=== PATIENT | male | born 1950 | race Caucasian/White ===

== ENCOUNTER 2016-05-25 08:26 | Observation (INO) | payer MEDICARE, OTHER ==
[2016-05-14 13:11] LABS: BASOPHILS 0.3 %; BASOPHILS ABSOLUTE 0.02 10/3/uL (0.0-0.16); EOSINOPHILS 4.6 %; EOSINOPHILS ABSOLUTE 0.35 10/3/uL (0.0-0.53); HEMATOCRIT 42.5 % (40.0-51.0); HEMOGLOBIN 14.1 g/dL (13.6-17.8); IMMATURE GRANULOCYTES 0.3 %; IMMATURE GRANULOCYTES ABSOLUTE 0.02 10/3/uL (0.0-0.11); LYMPHOCYTES 27.7 %; LYMPHOCYTES ABSOLUTE 2.13 10/3/uL (0.67-4.30); MEAN CORPUS HGB CONC 33.2 g/dL (32.0-36.0); MEAN CORPUSCULAR HEMOGLOB 31.7 pg (26.0-34.0); MEAN CORPUSCULAR VOLUME 95.5 fL (80-100); MEAN PLATELET VOLUME 11.2 fL (9.2-13.0); MONOCYTES 5.9 %; MONOCYTES ABSOLUTE 0.45 10/3/uL (0.21-1.20); NEUTROPHILS 61.2 %; NEUTROPHILS ABSOLUTE 4.72 10/3/uL (2.02-8.40); PLATELET COUNT 223 10/3/uL (150-400); RBC DISTRIBUTION WIDTH 13.5 % (12.0-16.0); RED CELL COUNT 4.45 10/6/uL (4.7-6.1); WHITE BLOOD CELLS 7.7 10/3/uL (4.5-10.5)
[2016-05-14 13:14] LABS: MANUAL DIFF NO %
[2016-05-14 13:19] LABS: PARTIAL THROMBO TIME 32.6 SEC (22.5-37.2); PROTIME (NOT ORD) 13.2 SEC (12.0-14.5)
[2016-05-14 13:25] LABS: BUN (BLOOD UREA NITROGEN) 18 MG/DL (6-23); CHLORIDE, SERUM 102 MMOL/L (96-112); CO2 (CARBON DIOXIDE) 31 MMOL/L (24-34); CREATININE 0.78 MG/DL (0.70-1.30); GFR AFRICAN AMERICAN 108 ML/MIN (>=60); GFR NON AFRICAN AMERICAN 93 ML/MIN (>=60); POTASSIUM, SERUM 4.8 MMOL/L (3.5-5.3); SODIUM, SERUM 142 MMOL/L (135-148)
[2016-05-14 13:27] LABS: GLUCOSE, SERUM 140 MG/DL (60-99)
[2016-05-14 13:59] LABS: ASCORBIC ACID (UR NOT ORDER) NEG (NEG); BILIRUBIN, URINE NEGATIVE (NEG); KETONE, URINE NEGATIVE (NEG); LEUKOCYTE ESTERASE(NOT OR NEG (NEG); WBC (NOT ORDERED) (RFLEX) 1 (0-5)
--- NOTE | ~2016-05-25 | OP ---
Record Of Operation [facility] [address] [place]. [address] NAME: IVAN TSAI : 46 STATUS : ADM Bret PAT#: [id number] AGE: 65 ADM/REG DATE : 05/25/16 MR#: [id number] REPORT SERV DATE: 05/25/16 DICTATED BY: PANDA SAM DATE: 05/25/16 REPORT STATUS : Draft TRANSCRIBED BY: MODL DATE: 05/25/16 DATE OF PROCEDURE: 05/25/2016 PREOPERATIVE DIAGNOSIS: Erectile dysfunction. POSTOPERATIVE DIAGNOSIS: Erectile dysfunction. PROCEDURES: 1. Insertion of inflatable penile prosthesis, three piece. 2. Scrotoplasty. SURGEON: Panda Sam M.D. PASSENGER RELATIONS REPRESENTATIVE: Selena Melvin. ANESTHESIA: General and local. BLOOD LOSS: Estimated 25 mL. FLUID REPLACEMENT: 1.4 L crystalloid. DRAINS: A 16-Irish Sam catheter. INDICATION: A 65-year-old white male with erectile dysfunction and a large scrotal web. HARDWARE: AMS LGX 18 cm cylinders with 2 cm rear-tip extenders bilaterally and a 100 mL reservoir. All placed through a penoscrotal incision and the reservoir behind the left retropubic space. TECHNIQUE: The patient was identified, brought to the operating room, administered general anesthetic agent by the Anesthesia Service, and intubated. He was positioned in the supine position. The lower abdomen, penis, and groin have already been clipped and the entire lower abdomen, penis, groin, scrotum, and upper thighs were prepped for 10 minutes and draped with sterile plastic drapes. A 16-Irish Sam catheter was passed in the bladder and left for drainage. The bladder was drained and then a catheter plug was placed in the catheter. 0.5% Marcaine plain was used to infiltrate the median raphe at the penoscrotal junction. I made a longitudinal incision through the median raphe and carried down to the Mckenzie fascia. The Mckenzie fascia was exposed and incised longitudinally as well. The three corpora of the penis are exposed. I exposed the corpora cavernosum as far proximally as possible. Holding sutures were placed into the corpora. The corpora infiltrated with 0.5% Marcaine plain and bilateral corporotomies were made measuring approximately 2 cm. I dissected within each corpora proximally and distally. I then used the Dilamezinsert device to dilate and measure the corpora. Each corpora measured a total of 20 cm (10 proximal and 10 distal). I therefore selected an 18 cm cylinders with 2 cm rear-tip extenders bilaterally. Record Of Operation [facility] [address] [place]. [address] NAME: IVAN TSAI : 46 STATUS : ADM Bret PAT#: [id number] AGE: 65 ADM/REG DATE : 05/25/16 MR#: [id number] REPORT SERV DATE: 05/25/16 DICTATED BY: PANDA SAM DATE: 05/25/16 REPORT STATUS : Draft TRANSCRIBED BY: KODI DATE: 05/25/16 I irrigated copiously in and out of the corporotomies to make sure there was no perforation, none occurred. I dissected up along the left spermatic cord through the scrotal wound. I palpated the medial wall of the inguinal canal. I used a large Nallely clamp and perforated the medial wall of the inguinal canal after emptying the bladder one more time. I then placed my finger through this perforation and then a nasal speculum through it. I placed an empty 100 mL reservoir in the retropubic space. I then filled the reservoir with 100 mL of saline. It held it without any backflow pressure. I used the Julio Cesar needle carrier and passed a Rufus needle through the corporotomies and out through the glans penis on each side. The strings attached to the tips of the cylinders. I then positioned each cylinder into the corpora bilaterally. There was a very good fit. I then closed the corporotomies by closing the holding sutures together as well as putting [id number] 2-0 PDS. Once I had the corpora closed, I used a surrogate reservoir and activated the device. Cylinders had very good glans support. They fit well into the corpora. I then deflated the cylinders returning the fluid back to the surrogate syringe. I dissected in the subdartos space in the dependent portion of the scrotum in the midline. I placed the pump mechanism into this location and anchored it there with 3-0 Vicryl. I then trimmed the excess tubing and used the quick connect system to connect the pump to the reservoir. When completed, I then again used the reservoir and activated the device. I left it erect for approximately 10 minutes. All tissues remained viable and the erection held. In the meanwhile, I was irrigating the wound copiously with antibiotic irrigation. I closed the Mckenzie fascia with running 3-0 Vicryl. I closed the dartos layer with interrupted 3-0 Vicryl. At this point, the patient wanted a scrotoplasty as he had a large webbing. I closed the inferior portion of the wound horizontally and closed the superior portion of the wound vertically. This effectively was a wide T plasty. I closed the skin with 2-0 Prolene. Dressings were applied. The device was deactivated. The catheter was connected to the drainage. The patient was awakened and taken to recovery unit in stable and satisfactory condition. PF/MODL Panda Sam M.D. / [id number] CC: Panda Sam M.D.
[~2016-05-25 08:26] MED LIST: ACCU10 PO; ACCU20 PO; ACCUPRIL40 MG PO; ASAB PO; COREG3 PO; COREG6 PO; FISH-EPA1000 MG PO; GLUCOPHAGE1000 MG PO; HCTZ25B PO; HYDROCHLOROT25 MG PO; ISORDIL10 PO; LIPITOR10 PO; LIPITOR20 PO; NORV10 PO; PROSCAR5 PO; PROTONIX PO; ZANTAC 150 PO
[2016-07-16] MEDS ORDERED: EFFEX75 PO (16:06)
[2016-07-16] MEDS ORDERED: NORCO1 TA2 PO (16:11)
== END 2016-05-26 14:18 | disposition home or self-care (01) ==
LOC: SDC 08:26 → SDC/OF 11:53 → 4SO 13:22
PROVIDERS: Urology
PROC: 0VQ50ZZ Repair Scrotum, Open Approach (ICD-10-PCS; 2016-05-25)
PROC: 0VUS0JZ Supplement Penis with Synthetic Substitute, Open Approach (ICD-10-PCS; principal; 2016-05-25 09:15)
DX: N52.9 Male erectile dysfunction, unspecified (principal); I10 Essential (primary) hypertension; K21.9 Gastro-esophageal reflux disease without esophagitis; Z79.82 Long term (current) use of aspirin; E11.9 Type 2 diabetes mellitus without complications; Z79.84 Long term (current) use of oral hypoglycemic drugs; Z88.8 Allergy status to other drugs, medicaments and biological substances; H91.90 Unspecified hearing loss, unspecified ear; Z90.49 Acquired absence of other specified parts of digestive tract; N40.0 Benign prostatic hyperplasia without lower urinary tract symptoms; Z98.890 Other specified postprocedural states; Z79.899 Other long term (current) drug therapy
CPT/HCPCS: 80048; 81001; 82962; 85025; 85610; 85730; 93005; 96374; 96375; 96376; A9270-GY; C1813; G0378; J1170; J1580; J2405; J2710; J3010; J3370

== ENCOUNTER 2016-07-23 06:53 | Day surgery (SDC) | payer MEDICARE, OTHER ==
[2016-07-16 12:57] LABS: BASOPHILS 0.3 %; BASOPHILS ABSOLUTE 0.02 10/3/uL (0.0-0.16); EOSINOPHILS 3.1 %; EOSINOPHILS ABSOLUTE 0.25 10/3/uL (0.0-0.53); HEMATOCRIT 41.7 % (40.0-51.0); HEMOGLOBIN 14.2 g/dL (13.6-17.8); IMMATURE GRANULOCYTES 0.4 %; IMMATURE GRANULOCYTES ABSOLUTE 0.03 10/3/uL (0.0-0.11); LYMPHOCYTES ABSOLUTE 2.16 10/3/uL (0.67-4.30); MEAN CORPUS HGB CONC 34.1 g/dL (32.0-36.0); MEAN CORPUSCULAR HEMOGLOB 32.1 pg (26.0-34.0); MEAN CORPUSCULAR VOLUME 94.3 fL (80-100); MEAN PLATELET VOLUME 11.1 fL (9.2-13.0); MONOCYTES 7.8 %; MONOCYTES ABSOLUTE 0.62 10/3/uL (0.21-1.20); NEUTROPHILS 61.4 %; NEUTROPHILS ABSOLUTE 4.91 10/3/uL (2.02-8.40); PLATELET COUNT 230 10/3/uL (150-400); RBC DISTRIBUTION WIDTH 13.3 % (12.0-16.0); RED CELL COUNT 4.42 10/6/uL (4.7-6.1)
[2016-07-16 12:58] LABS: MANUAL DIFF NO %
[2016-07-16 13:09] LABS: BUN (BLOOD UREA NITROGEN) 16 MG/DL (6-23); CALCIUM, SERUM 8.2 MG/DL (8.5-10.4); CHLORIDE, SERUM 104 MMOL/L (96-112); CO2 (CARBON DIOXIDE) 28 MMOL/L (24-34); CREATININE 1.03 MG/DL (0.70-1.30); GFR AFRICAN AMERICAN 87 ML/MIN (>=60); GFR NON AFRICAN AMERICAN 75 ML/MIN (>=60); SODIUM, SERUM 140 MMOL/L (135-148)
[2016-07-16 13:10] LABS: POTASSIUM, SERUM 3.8 MMOL/L (3.5-5.3)
[2016-07-16 13:11] LABS: GLUCOSE, SERUM 215 MG/DL (60-99)
[2016-07-16 13:46] LABS: ASCORBIC ACID (UR NOT ORDER) 40 (NEG); BILIRUBIN, URINE NEGATIVE (NEG); KETONE, URINE NEGATIVE (NEG); LEUKOCYTE ESTERASE(NOT OR NEG (NEG); WBC (NOT ORDERED) (RFLEX) 1 (0-5)
--- NOTE | ~2016-07-23 | OP ---
Record Of Operation [facility] [address] [place]. [address] NAME: IVAN TSAI : 46 STATUS : [facility] PAT#: [id number] AGE: 65 ADM/REG DATE : 07/23/16 MR#: [id number] REPORT SERV DATE: 07/23/16 DICTATED BY: PANDA SAM DATE: 07/23/16 REPORT STATUS : Draft TRANSCRIBED BY: MODL DATE: 07/23/16 DATE OF PROCEDURE: 07/23/2016 PREOPERATIVE DIAGNOSIS: Malposition of inflatable penile prosthesis pump mechanism. POSTOPERATIVE DIAGNOSIS: Malposition of inflatable penile prosthesis pump mechanism. PROCEDURE: Re-position of the pump mechanism of inflatable penile prosthesis. SURGEON: Panda Sam M.D. ANESTHESIA: General. BLOOD LOSS: 10 mL. FLUID REPLACEMENT: Unknown. DRAINS: None. INDICATION: Colvarflorentino Mg is a 65-year-old who had an IPP placed approximately two months ago. The pump has risen up and is high just underneath the penoscrotal junction. It interferes with intercourse. It is severe. RE-POSITION TECHNIQUE: The patient was identified, brought to the operating room, administered general anesthetic agent by the Anesthesia Service. Maintained with laryngeal mask airway. He was positioned in a dorsal lithotomy position. The penis, groin, and scrotum were prepped for 10 minutes and draped with sterile plastic drapes. A 16-Zambian Sam catheter was passed in the bladder. The bladder was drained. The catheter was capped. I then made an incision through the prior penoscrotal incision with a 15 blade scalpel. I carried this down through dartos layer sharply and exposed the tubing that connects the cylinders in the penis to the pump mechanism in the scrotum. I then opened the scrotum more inferiorly to expose the pump mechanism. Cultures were obtained from the capsule around the pump mechanism. I then dissected the tubing from the pump mechanism back to the cylinders. I completely freed this up and then when I get back to the corpora, I extend the corporotomies inferiorly and expose worked more tubing for approximately two more centimeters. This gives me adequate length of the tubing. I then the testicles bluntly. I positioned the pump mechanism in the most dependent portion of the scrotum. I sutured into position with 3 0 Vicryl. I then irrigated with copious amounts of antibiotic irrigation. I then closed in multiple layers. I excised the capsule that had formed and the previous pump mechanism. I then closed the dartos layer and then closed the skin with horizontal mattress sutures of the 2-0 Prolene. Dressing of Xeroform gauze was applied. Note, I had cycled device multiple times during the procedure. At the end of the procedure, I cycled and left it erect for 10 minutes. He held his erection without problem and then I deflated it. A Sam catheter was removed. The procedure was terminated. Record Of Operation [facility] [id number] [facility] [place]. [address] NAME: IVAN TSAI : 46 STATUS : [facility] PAT#: [id number] AGE: 65 ADM/REG DATE : 07/23/16 MR#: [id number] REPORT SERV DATE: 07/23/16 DICTATED BY: PANDA SAM DATE: 07/23/16 REPORT STATUS : Draft TRANSCRIBED BY: KODI DATE: 07/23/16 PF/KODI Panda Sam M.D. / [id number] CC: Fam Morales M.D.
[~2016-07-23 06:53] MED LIST changes: +EFFEX75 PO; +NORCO1 TA2 PO
== END 2016-07-23 13:34 | disposition home or self-care (01) ==
LOC: SDC 06:53
PROVIDERS: Urology
PROC: 0VU Male Reproductive System, Supplement (ICD-10-PCS; principal; 2016-07-23 07:45)
DX: T83.420A Displacement of implanted penile prosthesis, initial encounter (principal); I10 Essential (primary) hypertension; K21.9 Gastro-esophageal reflux disease without esophagitis; E11.9 Type 2 diabetes mellitus without complications; F41.9 Anxiety disorder, unspecified; I48.91 Unspecified atrial fibrillation
CPT/HCPCS: 80048; 81001; 82962; 85025; 87070; 87075; 87205; 93005; A9270-GY; J1580; J1885; J2250; J2270; J2405; J3010; J3370